=== PATIENT | male | born 1975 | race American Indian/Alaskan Native ===

== ENCOUNTER 2017-05-08 21:38 | Emergency (ER) | payer MEDICAID ==
[2017-05-08 22:11] VITALS: BP 117/69; PULSE 79; RESP 20; TEMP 98.1; O2SAT 99
--- NOTE | 2017-05-08 23:05 | C.PDOC ---
History Of Present Illness 42 year old male presents to the ED with complaints of intermittient episodes of subjective fever, sweats, cough, and shortness of breath for three days. Patient denies a history of asthma, recent travel, nausea, vomiting, diarrhea, or rash. Time Seen by Provider: 05/08/17 22:13 Chief Complaint (Nursing): Flu-like Symptoms History Per: Patient History/Exam Limitations: no limitations Onset/Duration Of Symptoms: Days (3 days ) Current Symptoms Are (Timing): Still Present Sick Contacts (Context): None Associated Symptoms: Fever, Cough. denies: Chills, Nausea, Vomiting, Diarrhea Recent travel outside of the [place]: No Past Medical History Reviewed: Historical Data, Nursing Documentation, Vital Signs Vital Signs: Last Vital Signs Temp 98.1 F 05/08/17 22:08 Pulse 79 05/08/17 22:08 Resp 20 05/08/17 23:12 BP 117/69 05/08/17 22:08 Pulse Ox 99 05/08/17 23:06 Family History: States: Unknown Family Hx - Social History Hx Alcohol Use: Yes (socially ) Hx Substance Use: Yes - Immunization History Hx Tetanus Toxoid Vaccination: No Hx Influenza Vaccination: No Hx Pneumococcal Vaccination: No Review Of Systems Constitutional: Positive for: Fever (subjective ), Sweats. Negative for: Chills Cardiovascular: Negative for: Chest Pain, Palpitations Respiratory: Positive for: Cough, Shortness of Breath Gastrointestinal: Negative for: Nausea, Vomiting, Abdominal Pain, Diarrhea Physical Exam - Physical Exam Appears: Non-toxic, No Acute Distress Skin: Warm, Dry, No Diaphoretic Head: Atraumatic, Normacephalic Eye(s): bilateral: Normal Inspection, PERRL, EOMI Ear(s): Bilateral: Normal Nose: Normal, No Discharge Oral Mucosa: Moist Throat: Normal, No Erythema, No Exudate Neck: Normal ROM, Supple Chest: Symmetrical, No Deformity Cardiovascular: Rhythm Regular, No Murmur Respiratory: No Rales, Rhonchi (scattered rhonci bilaterally ), No Wheezing Gastrointestinal/Abdominal: Soft, No Tenderness, No Distention, No Guarding, No Rebound Extremity: Normal ROM, No Tenderness Neurological/Psych: Oriented x3 Gait: Steady ED Course And Treatment O2 Sat by Pulse Oximetry: 99 (room air ) - Radiology CXR: Interpreted by Me, Viewed By Me Progress Note: CXR was ordered and patient was given Zithromax and prednisone. Disposition - Disposition Referrals: Hayley Joy MD [Medical Doctor] - Disposition: HOME/ ROUTINE Disposition Time: 23:05 Condition: GOOD Additional Instructions: Follow up with the medical doctor/clinic within 1-2 days. return if worsened. 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 - Scribe Statement The provider has reviewed the documentation as recorded by the Scribroseann Vicente All medical record entries made by the Jeniseibroseann were at my direction and personally dictated by me. I have reviewed the chart and agree that the record accurately reflects my personal performance of the history, physical exam, medical decision making, and the department course for this patient. I have also personally directed, reviewed, and agree with the discharge instructions and disposition.
--- NOTE | 2017-05-09 08:41 | RAD ---
HISTORY: cough COMPARISON: None available. TECHNIQUE: Chest PA and lateral FINDINGS: LUNGS: Mild venous congestion. Patchy opacities at the lung bases likely represent prominent breast shadows. PLEURA: No significant pleural effusion identified. No pneumothorax apparent. CARDIOVASCULAR: Normal. OSSEOUS STRUCTURES: No significant abnormalities. VISUALIZED UPPER ABDOMEN: Normal. OTHER FINDINGS: None. IMPRESSION: Mild venous congestion. Patchy opacities at the lung bases likely represent prominent breast shadows.
== END 2017-05-08 23:12 | disposition home or self-care (01) ==
LOC: C.ER 21:38
DX: J40 Bronchitis, not specified as acute or chronic (principal)

== ENCOUNTER 2017-10-23 21:08 | Emergency (ER) | payer MEDICAID ==
[2017-10-23 21:36] VITALS: BP 112/68; PULSE 84; RESP 20; TEMP 98.4; O2SAT 98
--- NOTE | 2017-10-23 22:54 | C.PDOC ---
History Of Present Illness 42 year old male presents to the ER with a complaint of pain to his right side after stretching. Contrary to triage, patient denies cough, phlegm, or SOB. Denies trauma Time Seen by Provider: 10/23/17 22:07 Chief Complaint (Nursing): Cough, Cold, Congestion History Per: Patient History/Exam Limitations: no limitations Onset/Duration Of Symptoms: Hrs Current Symptoms Are (Timing): Still Present Pain Scale Rating Of: 5 Recent travel outside of the [place]: No Past Medical History Reviewed: Historical Data, Nursing Documentation, Vital Signs Vital Signs: Last Vital Signs Temp 98.4 F 10/23/17 21:32 Pulse 84 10/23/17 21:32 Resp 20 10/23/17 21:32 BP 112/68 10/23/17 21:32 Pulse Ox 98 10/23/17 23:56 - Medical History PMH: Bronchitis Family History: States: Unknown Family Hx - Social History Hx Alcohol Use: Yes (socially ) Hx Substance Use: Yes (marijuana) - Immunization History Hx Tetanus Toxoid Vaccination: No Hx Influenza Vaccination: No Hx Pneumococcal Vaccination: No Review Of Systems Constitutional: Negative for: Fever, Chills Respiratory: Negative for: Cough, Shortness of Breath, Sputum Musculoskeletal: Positive for: Other (Right side pain) Physical Exam - Physical Exam Appears: Non-toxic, No Acute Distress Skin: Normal Color, Warm, Dry Head: Atraumatic, Normacephalic Eye(s): bilateral: Normal Inspection Chest: Tenderness (Right intercostal tenderness, no crepitus) Cardiovascular: Rhythm Regular Respiratory: Normal Breath Sounds, No Rales, No Rhonchi, No Wheezing Neurological/Psych: Oriented x3, Normal Speech ED Course And Treatment O2 Sat by Pulse Oximetry: 98 (Room air) Pulse Ox Interpretation: Normal Progress Note: Motrin administered for pain with relief. Patient is resting comfortably in the ER in no acute distress, vitals are stable; will discharge home with instructions to follow up with PMD or return if symptoms worsen. 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 - Scribe Statement The provider has reviewed the documentation as recorded by the Scribroseann Aldrich All medical record entries made by the Jeniseibroseann were at my direction and personally dictated by me. I have reviewed the chart and agree that the record accurately reflects my personal performance of the history, physical exam, medical decision making, and the department course for this patient. I have also personally directed, reviewed, and agree with the discharge instructions and disposition.
== END 2017-10-23 23:11 | disposition home or self-care (01) ==
LOC: SUPCPDRO 21:08 → C.ER 21:08
DX: S29.011A Strain of muscle and tendon of front wall of thorax, initial encounter (principal); X58.XXXA Exposure to other specified factors, initial encounter

== ENCOUNTER 2018-08-01 14:13 | Emergency (ER) | payer MEDICAID ==
[2018-08-01 14:26] VITALS: BP 120/75; PULSE 76; RESP 18; TEMP 98.9; O2SAT 100
--- NOTE | 2018-08-01 14:53 | C.PDOC ---
History Of Present Illness 43 y/o male presents to the ED complaining of subjective fever and chest congestion since yesterday. Patient states he feels feverish now. He does not report any other symptoms, contrary to triage. No fever medication taken GARDENER. Time Seen by Provider: 08/01/18 14:39 Chief Complaint (Nursing): Flu-like Symptoms History Per: Patient History/Exam Limitations: no limitations Onset/Duration Of Symptoms: Days (x2) Current Symptoms Are (Timing): Still Present Past Medical History Reviewed: Historical Data, Nursing Documentation, Vital Signs Vital Signs: Last Vital Signs Temp 98.9 F 08/01/18 14:24 Pulse 76 08/01/18 14:24 Resp 18 08/01/18 14:24 BP 120/75 08/01/18 14:24 Pulse Ox 100 08/01/18 14:24 - Medical History PMH: Bronchitis Family History: States: Unknown Family Hx - Social History Hx Alcohol Use: Yes (socially ) Hx Substance Use: Yes (marijuana) - Immunization History Hx Tetanus Toxoid Vaccination: No Hx Influenza Vaccination: No Hx Pneumococcal Vaccination: No Review Of Systems Except As Marked, All Systems Reviewed And Found Negative. Constitutional: Positive for: Fever Eyes: Negative for: Vision Change ENT: Positive for: Other (Chest congestion). Negative for: Throat Pain Cardiovascular: Negative for: Chest Pain Respiratory: Negative for: Shortness of Breath, Wheezing Gastrointestinal: Negative for: Vomiting, Diarrhea Skin: Negative for: Rash Neurological: Negative for: Headache, Dizziness Physical Exam - Physical Exam Appears: Non-toxic, No Acute Distress Skin: Normal Color, Warm, Dry Head: Atraumatic, Normacephalic Eye(s): bilateral: Normal Inspection, PERRL, EOMI Oral Mucosa: Moist Neck: Normal ROM, Supple Chest: Symmetrical Cardiovascular: Rhythm Regular, No Murmur Respiratory: Normal Breath Sounds, No Rales, No Rhonchi, No Wheezing Gastrointestinal/Abdominal: Soft, No Tenderness, No Distention Extremity: Bilateral: Atraumatic, Normal Color And Temperature, Normal ROM Pulses: Left Radial: Normal, Right Radial: Normal Neurological/Psych: Oriented x3, Normal Speech ED Course And Treatment O2 Sat by Pulse Oximetry: 100 (RA) Pulse Ox Interpretation: Normal Medical Decision Making Medical Decision Making: Impression: Common cold Plan: Patient will be discharged home. Advised to continue symptomatic care and follow up with PMD. Disposition Counseled Patient/Family Regarding: Diagnosis, Need For Followup - Disposition Referrals: YOUR,PMD [Other] Disposition: HOME/ ROUTINE Disposition Time: 14:52 Condition: GOOD Instructions: Cough, Runny Nose, and the Common Cold (DC) Forms: [employer] (French) - Clinical Impression Clinical Impression: Common cold - Scribe Statement The provider has reviewed the documentation as recorded by the Raissa Casas Provider Attestation: All medical record entries made by the Raissa were at my direction and personally dictated by me. I have reviewed the chart and agree that the record accurately reflects my personal performance of the history, physical exam, medical decision making, and the department course for this patient. I have also personally directed, reviewed, and agree with the discharge instructions and disposition.
== END 2018-08-01 14:57 | disposition home or self-care (01) ==
LOC: C.ER 14:13
DX: J00 Acute nasopharyngitis [common cold] (principal)